=== PATIENT | male | born 1985 | race Two or more races ===

== ENCOUNTER 2017-03-24 02:05 | Emergency (ER) | payer MEDICAID ==
[~2017-03-24] VITALS: Ht 170.2 cm; Wt 80.3 kg
[2017-03-24 02:06] VITALS: BP 97/44
[2017-03-24] MEDS ORDERED: LIDOCAINE 1%, 20ML ONE (02:20)
[2017-03-24] MEDS ORDERED: LIDOCAINE 1%, 20ML SQ ONE (03:00)
== END 2017-03-24 03:49 | disposition home or self-care (01) ==
LOC: ED 03:00
DX: L02.413 Cutaneous abscess of right upper limb (principal)
CPT/HCPCS: 10060